=== PATIENT | female | born 1985 | race Two or more races ===

== ENCOUNTER 2017-05-21 00:12 | Emergency (ER) | payer SELFPAY ==
--- NOTE | 2017-05-21 00:38 | EDM.PDOC ---
ED HPI GENERAL MEDICAL PROBLEM - General Chief Complaint: Fever Stated Complaint: COLD/BURNING LIPS Time Seen by Provider: 05/21/17 00:35 Source of Information: Reports: Patient, Family History Limitations: Reports: No Limitations - History of Present Illness INITIAL COMMENTS - FREE TEXT/NARRATIVE: 32-year-old female with cold symptoms for the past several days, they are 6 members of the family and 5 are having cold symptoms. She is running fevers and having mouth pain with lips burning and a cough, they are concerned she may have strep throat. Onset: Gradual (Over the past several days) Severity: Moderate Associated Symptoms: Reports: Cough, Fever/Chills, Malaise, Other (Burning lips and sore throat). Denies: Nausea/Vomiting likps. throat Pain Score (Numeric/FACES): 7 - Related Data Allergies Allergy/AdvReac Type Severity Reaction Status Date / Time No Known Allergies Allergy Verified 04/08/14 04:58 Home Meds: Home Meds NK [No Known Home Meds] 05/21/17 [History] Social & Family History - Tobacco Use Smoking Status *Q: Never Smoker Second Hand Smoke Exposure: No - Caffeine Use Caffeine Use: Reports: Coffee - Alcohol Use Days Per Week of Alcohol Use: 0 - Recreational Drug Use Recreational Drug Use: No ED ROS GENERAL - Review of Systems Review Of Systems: See Below Constitutional: Reports: Fever HEENT: Reports: Throat Pain. Denies: Nose Pain Respiratory: Reports: Cough. Denies: Shortness of Breath GI/Abdominal: Denies: Abdominal Pain, Nausea, Vomiting : Reports: No Symptoms Skin: Reports: No Symptoms Neurological: Denies: Headache ED EXAM, GENERAL - Physical Exam Exam: See Below Exam Limited By: No Limitations General Appearance: Alert, No Apparent Distress Eye Exam: Bilateral Eye: Normal Inspection Ears: Normal TMs Throat/Mouth: Other (She appears to have some vesicular viral lesions on the upper lip and slight gingival swelling. Also pharyngeal erythema) Head: Atraumatic Neck: No: Lymphadenopathy (R), Lymphadenopathy (L) Respiratory/Chest: No Respiratory Distress, Lungs Clear Neurological: Alert Psychiatric: Normal Affect, Normal Mood Skin Exam: Warm, Dry Course - Vital Signs Last Recorded V/S: Last Vital Signs Temp 96.5 F 05/21/17 00:40 Pulse 71 05/21/17 00:40 Resp 18 05/21/17 00:40 BP 108/75 05/21/17 00:40 Pulse Ox 96 05/21/17 00:40 - Orders/Labs/Meds Orders: Active Orders 24 hr Category Date Time Status CULTURE STREP A CONFIRMATION [RM] Stat Lab 05/21/17 00:58 Results STREP SCRN A RAPID W CULT CONF [RM] Stat Lab 05/21/17 00:58 Results Meds: Medications Discontinued Medications Generic Name Dose Route Start Last Admin Trade Name Romie PRN Reason Stop Dose Admin Lidocaine HCl 20 ml 05/21/17 01:20 05/21/17 01:26 Xylocaine 2% Viscous PO 05/21/17 01:21 Not Given ONETIME ONE Lidocaine HCl 15 ml 05/21/17 01:25 05/21/17 01:25 Xylocaine 2% Viscous PO 05/21/17 01:26 15 ml ONETIME ONE Administration Lidocaine HCl Confirm 05/21/17 01:24 Xylocaine 2% Viscous Administered 05/21/17 01:25 Dose 15 ml .ROUTE .STK-MED ONE - Re-Assessments/Exams Free Text/Narrative Re-Assessment/Exam: 05/21/17 01:00 A rapid strep was obtained. 05/21/17 01:15 Strep was negative. It was explained to the patient this is a viral syndrome and should run its course without treatment. Ibuprofen or Tylenol can be taken for pain or fever. Departure - Departure Time of Disposition: 01:31 Disposition: Home, Self-Care 01 Condition: Good Clinical Impression: Stomatitis, viral - Discharge Information Instructions: Viral Illness, Adult Referrals: PCP,None [Primary Care Provider] - Forms: ED Department Discharge Care Plan Goals: Continue with rest, ibuprofen or Tylenol, and plenty of fluids and you should improve daily. Recheck at any time if not improving satisfactorily. You can also use topical viscous lidocaine for sensitive areas in the mouth. - My Orders Last 24 Hours: My Active Orders 05/21/17 00:58 CULTURE STREP A CONFIRMATION [RM] Stat STREP SCRN A RAPID W CULT CONF [RM] Stat - Assessment/Plan Last 24 Hours: My Active Orders 05/21/17 00:58 CULTURE STREP A CONFIRMATION [RM] Stat STREP SCRN A RAPID W CULT CONF [RM] Stat
[2017-05-21 00:41] VITALS: BP 108/75
[2017-05-21] MEDS ORDERED: Lidocaine 2% Viscous Solution 100 ML Bottle PO ONE (01:20)
[2017-05-21] MEDS ORDERED: Lidocaine 2% Viscous Solution 15 ML Cup ONE (01:24)
[2017-05-21] MEDS ORDERED: Lidocaine 2% Viscous Solution 15 ML Cup PO ONE (01:25)
== END 2017-05-21 01:31 | disposition home or self-care (01) ==
LOC: JP.ED 00:12
DX: K12.1 Other forms of stomatitis (principal)
CPT/HCPCS: 87081; 87430; 99284; A9270

== ENCOUNTER 2020-01-16 16:28 | Emergency (ER) | payer OTHER ==
[2020-01-16 17:19] VITALS: BP 140/96; PULSE 85
--- NOTE | 2020-01-16 17:38 | EDM.PDOC ---
ED HPI GENERAL MEDICAL PROBLEM - General Chief Complaint: Fever Stated Complaint: TIRED SHOULDER PAIN DID TEST POSITIVE FOR COVID Time Seen by Provider: 01/16/20 16:49 Source of Information: Reports: Patient History Limitations: Reports: No Limitations - History of Present Illness INITIAL COMMENTS - FREE TEXT/NARRATIVE: 34-year-old female presents to this emergency department for evaluation of a fever and body aches and pains along with fatigue. Patient became symptomatic with similar symptoms back on December 22. She tested positive for coronavirus on December 29. She was asymptomatic as of January 04 and came off quarantine this past Friday. On Friday her symptoms reoccurred. She denies any other symptoms such as shortness of breath, cough, vomiting, diarrhea, abdominal pain or chest pain. She denies any dysuria. She has not been vaccinated for influenza this season. She is not aware of any other infections in her home living environment or work environment. - Related Data Allergies Allergy/AdvReac Type Severity Reaction Status Date / Time No Known Allergies Allergy Verified 01/16/20 17:11 Home Meds: Home Meds NK [No Known Home Meds] 05/21/17 [History] Oseltamivir [Tamiflu] 75 mg PO BID #9 cap 04/25/19 [Rx] Past Medical History [employer] History: Reports: - Infectious Disease History Infectious Disease History: Reports: None - Past Surgical History Female Surgical History: Reports: D&C, Other (See Below) Other Female Surgeries/Procedures: ovarian cyst Social & Family History - Tobacco Use Tobacco Use Status *Q: Never Tobacco User Second Hand Smoke Exposure: No - Caffeine Use Caffeine Use: Reports: Coffee, None - Recreational Drug Use Recreational Drug Use: No ED ROS GENERAL - Review of Systems Review Of Systems: Comprehensive ROS is negative, except as noted in HPI. ED EXAM, GENERAL - Physical Exam Exam: See Below Exam Limited By: No Limitations General Appearance: Alert, WD/WN, No Apparent Distress Ears: Normal External Exam Nose: Normal Inspection Throat/Mouth: Normal Inspection Neck: Normal Inspection, Supple, Non-Tender, Full Range of Motion Respiratory/Chest: No Respiratory Distress, Lungs Clear, Normal Breath Sounds, No Accessory Muscle Use, Other (No hypoxia) Cardiovascular: Normal Peripheral Pulses, Regular Rate, Rhythm, No Edema Peripheral Pulses: 2+: Radial (L), Radial (R) GI/Abdominal: Soft, Non-Tender, No Distention Back Exam: Normal Inspection, Full Range of Motion Extremities: Normal Inspection, Normal Range of Motion, Non-Tender Neurological: Oriented, Normal Gait, No Motor/Sensory Deficits Psychiatric: Normal Affect, Normal Mood Skin Exam: Warm, Dry, Intact, No Rash Course - Vital Signs Last Recorded V/S: Last Vital Signs Temp 98.8 F 01/16/20 17:12 Pulse 85 01/16/20 17:12 Resp 20 01/16/20 17:12 BP 140/96 H 01/16/20 17:12 Pulse Ox 99 01/16/20 17:12 - Orders/Labs/Meds Orders: Active Orders 24 hr Category Date Time Status INFLUENZA A+B AG SCREEN [RM] Stat Lab 01/16/20 17:39 Received Isolation [COMM] Routine Oth 01/16/20 17:29 Ordered Labs: Laboratory Tests 01/16/20 Range/Units 17:39 Urine Color Yellow (YELLOW) Urine Appearance Clear (CLEAR) Urine pH 7.0 (5.0-8.0) Ur Specific [place] 1.015 (1.008-1.030) Urine Protein Negative (NEGATIVE) mg/dL Urine Glucose (UA) Negative (NEGATIVE) mg/dL Urine Ketones Negative (NEGATIVE) mg/dL Urine Occult Blood Negative (NEGATIVE) Urine Nitrite Negative (NEGATIVE) Urine Bilirubin Negative (NEGATIVE) Urine Urobilinogen 0.2 (0.2-1.0) EU/dL Ur Leukocyte Esterase Negative (NEGATIVE) Urine RBC Not seen (0-5) Urine WBC Not seen (0-5) Ur Epithelial Cells Few Urine Bacteria Moderate Departure - Departure Time of Disposition: 18:00 Disposition: Home, Self-Care 01 Condition: Good Clinical Impression: COVID-19 - Discharge Information Instructions: COVID-19 Frequently Asked Questions, COVID-19 Referrals: PCP,None [Primary Care Provider] - Forms: ED Department Discharge Additional Instructions: Return to isolation until symptom-free for at least 3 days. Contact your primary care doctor and discuss symptoms and test results for further evaluation. Utilize [id number] medications such as Tylenol and ibuprofen to control pain and fever. Sure to get adequate rest and hydration. Seek immediate medical attention with any rapidly worsening symptoms or concerns. Sepsis Event Note (ED) - Evaluation Sepsis Screening Result: No Definite Risk - Focused Exam Vital Signs: Vital Signs Temp Pulse Resp BP Pulse Ox 01/16/20 17:12 98.8 F 85 20 140/96 H 99 - My Orders Last 24 Hours: My Active Orders 01/16/20 17:29 Isolation [COMM] Routine 01/16/20 17:39 INFLUENZA A+B AG SCREEN [RM] Stat - Assessment/Plan Last 24 Hours: My Active Orders 01/16/20 17:29 Isolation [COMM] Routine 01/16/20 17:39 INFLUENZA A+B AG SCREEN [RM] Stat Assessment:: 34-year-old female who was diagnosed on December 29 with coronavirus recovered and was asymptomatic on January 04 and return to work this past Friday then on Friday began to have fatigue, body aches and pains and fever once again. At this time it appears as though she prematurely returned off quarantine and that she is likely continue to experience mild symptoms secondary to COVID-19 infection. Advised patient to return to quarantine procedures and supportive home cares. Strongly encourage follow-up with her primary care doctor to discuss further outpatient recommendations. Should not discontinue quarantine until asymptomatic for at least 3 days. Medically stable. Discharge home. Plan: 1. Continue coronavirus quarantine as per the CDC and [facility] guidelines. 2. Contact your primary care doctor and discuss further outpatient recommendations and follow-up. 3. Seek immediate medical attention with any rapidly worsening symptoms or concerns.
== END 2020-01-16 18:40 | disposition home or self-care (01) ==
LOC: JP.ED 16:28
DX: U07.1 COVID-19 (principal)
CPT/HCPCS: 81001; 87804; 87804-59; 99283

== ENCOUNTER 2021-09-07 23:27 | Emergency (ER) | payer BC, OTHER ==
[2021-09-08 00:10] VITALS: BP 111/77; PULSE 75
[2021-09-08] MEDS ORDERED: Sodium Chloride 0.9% 10 ML Syringe FLUSH PRN (00:22)
[2021-09-08] MEDS ORDERED: Ondansetron 4 MG/2 ML SDV IVPUSH ONE (00:22)
[2021-09-08] MEDS ORDERED: Sodium Chloride 0.9% 1,000 ML IV SCH (00:30)
[2021-09-08] MEDS ORDERED: Iopamidol 612 MG/ML 500 ML Multipack Bottle IV ONE (00:33)
[2021-09-08] MEDS ORDERED: Sodium Chloride 0.9% 100 ML IV SCH (00:45)
[2021-09-08 00:51] LABS: ESTIMATED GFR 125 mL/min (>60)
== END 2021-09-08 02:03 | disposition home or self-care (01) ==
LOC: JP.ED 23:27
DX: A08.4 Viral intestinal infection, unspecified (principal); Z79.899 Other long term (current) drug therapy; Z86.16 Personal history of COVID-19; Z20.822 Contact with and (suspected) exposure to COVID-19
CPT/HCPCS: 36415; 74177; 80053; 85025; 86140; 87635; 96361; 96374; 99282; 99284; J2405; J3490; J7030; Q9967; U0002

== ENCOUNTER 2023-10-22 15:16 | Emergency (ER) | payer BC ==
[2023-10-22 15:35] VITALS: BP 103/53; PULSE 89
[2023-10-22 16:21] LABS: BASOPHILS ABSOLUTE AUTO 0.01 K/uL (0.00-0.10); BASOPHILS PERCENT AUTO 0.3 % (0.1-1.3); EOSINOPHILS ABSOLUTE AUTO 0.01 K/uL (0.00-0.40); EOSINOPHILS PERCENT AUTO 0.3 % (0.0-5.4); HEMOGLOBIN 10.2 g/dL (11.2-15.5); IMMATURE GRAN ABSOLUTE AUTO 0.02 K/uL (0.00-0.23); IMMATURE GRAN PERCENT AUTO 0.5 % (0.0-0.7); LYMPHOCYTES ABSOLUTE AUTO 0.23 K/uL (0.8-3.3); LYMPHOCYTES PERCENT AUTO 5.8 % (11.4-47.7); MEAN CORPUSCULAR HEMOGLOBIN 29.7 pg (31.6-35.5); MEAN CORPUSCULAR HGB CONC 35.2 g/dL (31.6-35.5); MEAN CORPUSCULAR VOLUME 84.5 fL (81.4-99.0); MONOCYTES ABSOLUTE AUTO 0.11 K/uL (0.20-0.90); MONOCYTES PERCENT AUTO 2.8 % (3.3-12.6); NEUTROPHILS ABSOLUTE AUTO 3.59 K/uL (1.0-7.6); NEUTROPHILS PERCENT AUTO 90.3 % (40.0-78.1); PLATELET COUNT,PLT 129 K/uL (130-375); RED BLOOD CELL COUNT 3.43 M/uL (3.77-5.24)
[2023-10-22 16:30] LABS: BILIRUBIN,URINE NEGATIVE (NEGATIVE); COLOR,URINE YELLOW (YELLOW); GLUCOSE,URINE 100 mg/dL (NEGATIVE); KETONES,URINE NEGATIVE (NEGATIVE); LEUKOCYTE ESTERASE,URINE NEGATIVE (NEGATIVE); NITRITE,URINE NEGATIVE (NEGATIVE); OCCULT BLOOD,URINE NEGATIVE (NEGATIVE); PH,URINE 6.5 (5.0-8.0); PROTEIN,URINE NEGATIVE (NEGATIVE); UROBILINOGEN,URINE 0.2 EU/dL (0.2-1.0)
[2023-10-22 16:40] LABS: CALCIUM 8.3 mg/dL (8.5-10.1); CREATININE 0.6 mg/dL (0.6-1.0); EST CRCL DRUG DOSING (CG) 91.32 mL/min
[2023-10-22 16:41] LABS: APPEARANCE,URINE CLEAR (CLEAR); BACTERIA,URINE FEW; EPITHELIAL CELLS,URINE MODERATE; MUCUS,URINE FEW; RBC,URINE 0-5 (0-5); WBC,URINE 0-5 (0-5)
[2023-10-22 16:42] LABS: AMORPHOUS SEDIMENT,URINE NOT SEEN
== END 2023-10-22 18:23 | disposition home or self-care (01) ==
LOC: JP.ED 15:16
DX: O99.281 Endocrine, nutritional and metabolic diseases complicating pregnancy, first trimester (principal); E86.0 Dehydration; Z79.899 Other long term (current) drug therapy; Z3A.00 Weeks of gestation of pregnancy not specified
CPT/HCPCS: 36415; 80048; 81001; 85025; 99284